=== PATIENT | female | born 1950 | race Caucasian/White ===

== ENCOUNTER 2018-05-25 07:34 | Outpatient (CLI) | payer BC ==
[~2018-05-25] VITALS: Ht 157.5 cm; Wt 48.1 kg
[2018-05-25] VITALS (8 sets, daily range): BP systolic 91–140; BP diastolic 51–77
[2018-05-25] MEDS ORDERED: LIDOCAINE 1% PF 30 ML VIAL. ONE (07:50)
[2018-05-25] MEDS ORDERED: IODIXANOL 320 MG/ML 100 ML VIAL. ONE (07:50)
[2018-05-25 08:06] LABS: HEMATOCRIT 37.5 % (36.0-47.0); HEMOGLOBIN 12.9 g/dL (12.0-15.5); RED BLOOD COUNT 3.9 x10^6/uL (3.50-5.40); RED CELL DISTRIBUTION WIDTH 12.9 % (11.5-14.5)
[2018-05-25 08:16] LABS: PROTHROMBIN TIME PATIENT 12.1 SEC (11.7-14.0)
[2018-05-25 08:17] LABS: CREATININE 1.1 mg/dL (0.6-1.0); GFR 49.7; POTASSIUM 4.4 mmol/L (3.5-5.1)
[2018-05-25] MEDS ORDERED: TRAZ-85 PO (08:37)
[2018-05-25] MEDS ORDERED: NPH,100V SQ (08:37)
[2018-05-25] MEDS ORDERED: CITA40TA5 PO (08:37)
[2018-05-25] MEDS ORDERED: GLIP10TA13 PO (08:37)
[2018-05-25] MEDS ORDERED: LISI10TA2 PO (08:37)
[2018-05-25] MEDS ORDERED: METF500T9 PO (08:37)
[2018-05-25] MEDS ORDERED: LOVA40TA2 PO (08:37)
[2018-05-25] MEDS ORDERED: GABA-585 PO (08:37)
[2018-05-25] MEDS ORDERED: fentaNYL PF VIAL 100 MCG/2 ML VIAL ONE (09:01)
[2018-05-25] MEDS ORDERED: MIDAZOLAM HCL/PF 2 MG/2 ML VIAL. ONE (09:02)
[2018-05-25] MEDS ORDERED: MIDAZOLAM HCL/PF 2 MG/2 ML VIAL. IV ONE (09:45)
[2018-05-25] MEDS ORDERED: fentaNYL PF VIAL 100 MCG/2 ML VIAL IV ONE (09:45)
[2018-05-25] MEDS ORDERED: LIDOCAINE 1% PF 30 ML VIAL. INJ ONE (09:45)
[2018-05-25] MEDS ORDERED: CONTRAST GIVEN. MC PRN (09:45)
[2018-05-25] MEDS ORDERED: IODIXANOL 320 MG/ML 100 ML VIAL. IART ONE (09:45)
--- NOTE | 2018-05-25 09:50 | CARD ---
MR#: [id number] Date of Study: 05/25/2018 Ordering Physician: ROCHELLE LIGHT, Referring Physician: ROCHELLE LIGHT Tech: Mattie Noyola RDCS APPROVED REPORT EXAM: Two-dimensional and M-mode echocardiogram with Doppler and color Doppler. Other Information Quality : Good INDICATION Hypertension/HCVD 2D DIMENSIONS RVDd2.2 (2.9-3.5cm)Left Atrium(2D)3.2 (1.6-4.0cm) IVSd0.9 (0.7-1.1cm)Aortic Root(2D)2.6 (2.0-3.7cm) LVDd3.9 (3.9-5.9cm)LVOT Diameter1.9 (1.8-2.4cm) PWd0.9 (0.7-1.1cm)LVDs2.1 (2.5-4.0cm) FS (%) 30.0 %SV53.0 ml LVEF(%)60.0 (>50%) Aortic Valve AoV Peak Domo.108.7cm/sAoV VTI22.5cm AO Peak GR.4.7mmHgLVOT VTI 23.74cm AO Mean GR.2mmHgAVA (VTI)3.00cm2 Mitral Valve MV E Gtfbcqmc48.5cm/sMV DECEL NONE237tx MV A Fxwvvwoj909.0cm/sE/A Ratio0.9 TDI Lateral E' P. V7.21cm/sMedial E' P. V5.79cm/s E/Lateral E'13.0E/Medial E'16.1 LEFT VENTRICLE The left ventricle is normal size. There is normal left ventricular wall thickness. The left ventricu lar systolic function is normal. The Ejection Fraction is 55-60%. There is normal LV segmental wall m otion. Transmitral Doppler flow pattern is Grade I-abnormal relaxation pattern. RIGHT VENTRICLE The right ventricle is normal size. The right ventricular systolic function is normal. ATRIA The left atrium size is normal. The right atrium size is normal. The interatrial septum is intact wit h no evidence for an atrial septal defect or patent foramen ovale as noted on 2-D or Doppler imaging. AORTIC VALVE The aortic valve is calcified but opens well. Doppler and Color Flow revealed no significant aortic r egurgitation. There is no significant aortic valvular stenosis. MITRAL VALVE The mitral valve is calcified but opens well. Mitral annular calcification is mild. There is no evide nce of mitral valve prolapse. There is no mitral valve stenosis. Doppler and Color-flow revealed trac e mitral regurgitation. TRICUSPID VALVE The tricuspid valve is normal in structure and function. Doppler and Color Flow revealed trace tricus pid regurgitation. There is no tricuspid valve stenosis. PULMONIC VALVE The pulmonic valve is not well visualized. Doppler and Color Flow revealed no pulmonic valvular regur gitation. There is no pulmonic valvular stenosis. GREAT VESSELS The aortic root is normal in size. The ascending aorta is normal in size. The IVC is normal in size a nd collapses >50% with inspiration. PERICARDIAL EFFUSION There is no evidence of significant pericardial effusion. Critical Notification Critical Value: No <Conclusion> The left ventricular systolic function is normal. The Ejection Fraction is 55-60%. There is normal LV segmental wall motion. Trace mitral regurgitation. Trace tricuspid regurgitation. There is no evidence of significant pericardial effusion. Signed by : Rochelle Light, Electronically Approved : 05/25/2018 09:48:54
[2018-05-25] MEDS ORDERED: IV 1/2 NORMAL SALINE 1,000 ML IV SCH (09:54)
--- NOTE | 2018-05-25 09:54 | PDOC ---
MODERATE SEDATION ASSESSMENT RISKS/ALTERNATIVES Risks/Alternatives Risks and alternatives of this type of sedation and procedure discussed with: RISK/ALTERNATIVES: Patient H & P ON CHART H & P H & P on chart and reviewed for co-morbid conditions and appropriate labs. H&P ON CHART: Yes STATUS PREG STATUS ASSESSED: N/A MEDS/ALLERGIES REVIEWED Meds/Allergies Reviewed Medications and Allergies including time and route of recently administered narcotics and sedatives. MEDS/ALLERGIES REVIEWED: Yes ASA RATING ASA RATING: II AIRWAY ASSESSMENT Airway Assessment Airway patency, oral function limitations, presence of caps, crowns, dentures, partials, and ability to extend neck assessed. AIRWAY ASSESSMENT: Yes MALLAMPATI SCORE MALLAMPATI SCORE: II PRE-SEDATION ASSESSMENT PRE-SEDATION ASSESSMENT: Yes ROCHELLE LIGHT MD May 25, 2018 09:54
[2018-05-25] MEDS ORDERED: ACETAMINOPHEN 325 MG TABLET. PO PRN (10:00)
--- NOTE | 2018-05-25 10:07 | CARD ---
MR#: [id number] Date of Study: 05/25/2018 Ordering Physician: ROCHELLE LIGHT, Referring Physician: ROCHELLE LIGHT Tech: RT Onur (R) APPROVED REPORT Patient [id number] Soaker: Cierra Noyola RT (R) Procedure(s) performed: Aortogram with bilateral lower extremity runoff Moderate sedation: 41 minutes INDICATION FOR PROCEDURE The indication(s) include : Peripheral artery disease with claudication. PROCEDURE NARRATIVE After explaining the risks, benefits and alternative options, informed consent was obtained from aldo ent. Patient was brought to the cardiac Director Of Construction and both her groins were prepped and draped in the u sual fashion. 20 mL of 2% lidocaine was infiltrated into the skin and subcutaneous tissues of the lef t groin for local anesthesia. Arterial access was obtained in the left common femoral artery and a 5 sheath was inserted. 5 [place] pigtail catheter was used to perform aortogram with bilateral lower ext remity runoff. Since patient had suspicious lesion involving the ostial segment of the right common i liac artery, a 5 [place] crossover catheter was used to cross the aortic [place] and selective angiogra phy along with pullback gradient was performed. Patient tolerated the procedure well. Hemostasis in t he left groin was achieved using mynx closure device. There were no immediate complications. FINDINGS 1. No significant stenosis involving the distal descending aorta 2. 30-40% stenosis involving the ostial segment of right common iliac artery with nonsignificant pul lback gradient of 9 mmHg. No significant stenosis involving left common iliac and bilateral external iliac arteries. 3. No significant stenosis involving bilateral common femoral arteries. The superficial femoral [place] bilaterally showed 20-30% stenosis involving the distal segment. 4. No significant stenosis involving bilateral popliteal arteries. There is good three vessel runoff below the knee bilaterally. Conclusion Nonobstructive peripheral artery disease Recommendations Vascular risk factor modification including smoking cessation and regular exercise regimen Signed by : Rochelle Light, Electronically Approved : 05/25/2018 10:06:13
== END 2018-05-25 12:35 | disposition home or self-care (01) ==
LOC: CCL 07:34
PROVIDERS: ATTEND Internal Medicine Cardiovascular Disease
DX: I70.213 Atherosclerosis of native arteries of extremities with intermittent claudication, bilateral legs (principal); E78.00 Pure hypercholesterolemia, unspecified; I10 Essential (primary) hypertension; J44.9 Chronic obstructive pulmonary disease, unspecified; E11.9 Type 2 diabetes mellitus without complications; F32.9 Major depressive disorder, single episode, unspecified; Z88.5 Allergy status to narcotic agent; Z88.8 Allergy status to other drugs, medicaments and biological substances; Z79.899 Other long term (current) drug therapy; Z79.84 Long term (current) use of oral hypoglycemic drugs
CPT/HCPCS: 36245; 36415; 75630; 80048; 85027; 85610; 93306; 99152; 99153; C1713; C1769; C1892; G0269; J1644; J2250; J3010; Q9967

== ENCOUNTER 2019-03-17 21:52 | Emergency (ER) | payer BC, OTHER ==
[~2019-03-17] VITALS: Ht 157.5 cm; Wt 68.0 kg
[~2019-03-17 21:52] MED LIST: CITA40TA5 PO; GABA-585 PO; GLIP10TA13 PO; LISI10TA2 PO; LOVA40TA2 PO; METF500T9 PO; NPH,100V SQ; TRAZ-118 PO
--- NOTE | 2019-03-17 22:09 | PHYS DOC ---
Adult General Chief Complaint Chief Complaint: OTHER COMPLAINTS HPI HPI 69-year-old female states she got a little dizzy at home and fell into a cabinet which then subsequently fell on her right arm. She opened up a laceration to her right forearm. She complains of severe pain to her right arm. She denies any chest pain shortness of breath or dyspnea on exertion. She denies any preceding palpitations. She did state that her blood sugar seemed low but she checked it and it was 240 at home. She denied any headache or lateralizing neurologic weakness.[] Review of Systems Review of Systems Constitutional: Denies fever or chills [] Eyes: Denies change in visual acuity, redness, or eye pain [] HENT: Denies nasal congestion or sore throat [] Respiratory: Denies cough or shortness of breath [] Cardiovascular: No additional information not addressed in HPI [] GI: Denies abdominal pain, nausea, vomiting, bloody stools or diarrhea [] : Denies dysuria or hematuria [] Musculoskeletal: Pain right forearm[] Integument: Wound right forearm[] Neurologic: Denies headache, focal weakness or sensory changes [] Endocrine: Denies polyuria or polydipsia [] All other systems were reviewed and found to be within normal limits, except as documented in this note. Current Medications Current Medications Current Medications Medications (Trade) Dose Ordered Sig/Candido Start Time Stop Time Status Last Admin Dose Admin Sodium Chloride 500 ml @ 500 mls/hr 1X ONCE 03/17/19 23:00 03/17/19 23:59 03/17/19 22:36 500 MLS/HR Tetanus/ Diphtheria Toxoids (Tenivac Syringe) 0.5 ml ONCE ONCE 03/17/19 23:00 03/17/19 23:01 DC Allergies Allergies Allergies Coded Allergies Type Severity Reaction Last Updated Verified NSAIDS (Non-Steroidal Anti-Inflamma Allergy Intermediate 05/25/18 Yes codeine Allergy Intermediate 05/25/18 Yes Physical Exam Physical Exam Constitutional: Well developed, well nourished, mild distress, non-toxic appearance. [] HENT: Normocephalic, atraumatic, bilateral external ears normal, oropharynx moist, no oral exudates, nose normal. [] Eyes: PERRLA, EOMI, conjunctiva normal, no discharge. [] Neck: Normal range of motion, no tenderness, supple, no stridor. [] Cardiovascular:Heart rate regular rhythm, no murmur [] Lungs & Thorax: Bilateral breath sounds clear to auscultation [] Abdomen: Bowel sounds normal, soft, no tenderness, no masses, no pulsatile masses. [] Skin: 3 cm skin tear to the right forearm. [] Back: No tenderness, no CVA tenderness. [] Extremities: Right arm is tender to palp there is no obvious deformity. [] Neurologic: Alert and oriented X 3, normal motor function, normal sensory function, no focal deficits noted. [] Psychologic: Extremely anxious. [] Current Patient Data Vital Signs Vital Signs Date Time Temp Pulse Resp B/P (MAP) Pulse Ox O2 Delivery O2 Flow Rate FiO2 03/17/19 21:57 98.0 89 16 127/67 (87) 91 Room Air 98.0 Lab Values Laboratory Tests Test 03/17/19 22:40 White Blood Count 11.3 x10^3/uL (4.0-11.0) H Red Blood Count 4.11 x10^6/uL (3.50-5.40) Hemoglobin 13.1 g/dL (12.0-15.5) Hematocrit 39.0 % (36.0-47.0) Mean Corpuscular Volume 95 fL (79-100) Mean Corpuscular Hemoglobin 32 pg (25-35) Mean Corpuscular Hemoglobin Concent 34 g/dL (31-37) Red Cell Distribution Width 13.1 % (11.5-14.5) Platelet Count 342 x10^3/uL (140-400) Neutrophils (%) (Auto) 71 % (31-73) Lymphocytes (%) (Auto) 20 % (24-48) L Monocytes (%) (Auto) 6 % (0-9) Eosinophils (%) (Auto) 2 % (0-3) Basophils (%) (Auto) 1 % (0-3) Neutrophils # (Auto) 8.0 x10^3uL (1.8-7.7) H Lymphocytes # (Auto) 2.3 x10^3/uL (1.0-4.8) Monocytes # (Auto) 0.7 x10^3/uL (0.0-1.1) Eosinophils # (Auto) 0.2 x10^3/uL (0.0-0.7) Basophils # (Auto) 0.1 x10^3/uL (0.0-0.2) Sodium Level 132 mmol/L (136-145) L Potassium Level 4.6 mmol/L (3.5-5.1) Chloride Level 95 mmol/L (98-107) L Carbon Dioxide Level 24 mmol/L (21-32) Anion Gap 13 (6-14) Blood Urea Nitrogen 21 mg/dL (7-20) H Creatinine 1.5 mg/dL (0.6-1.0) H Estimated GFR (Cockcroft-Gault) 34.6 BUN/Creatinine Ratio 14 (6-20) Glucose Level 280 mg/dL (70-99) H Calcium Level 8.9 mg/dL (8.5-10.1) Total Bilirubin 0.2 mg/dL (0.2-1.0) Aspartate Amino Transferase (AST) 20 U/L (15-37) Alanine Aminotransferase (ALT) 23 U/L (14-59) Alkaline Phosphatase 109 U/L (46-116) Total Protein 6.1 g/dL (6.4-8.2) L Albumin 3.1 g/dL (3.4-5.0) L Albumin/Globulin Ratio 1.0 (1.0-1.7) Laboratory Tests 03/17/19 22:40 Laboratory Tests 03/17/19 22:40 EKG EKG [] Interpretation Time: EKG: Normal sinus rhythm rate of [address]-T changes Radiology/Procedures Radiology/Procedures []REASON: Trauma, laceration and pain at distal forarm PROCEDURE: FOREARM RIGHT Two-view right forearm HISTORY: Pain status post laceration AP lateral views The visualized osseous structures appear normal. IMPRESSION: No acute findings. Impressions: REASON: syncope PROCEDURE: CT HEAD WO CONTRAST CT Head W/O Contrast: History: Syncope Comparison: none Axial images were obtained without contrast. The leyva and white matter appears normal and symmetrical for the patients age. There is no mass effect, extraaxial fluid collections or hydrocephalus. There is no gross bleed. There is no focal loss of leyva-white matter distinction to suggest acute ischemia, i.e. stroke. Impression: No acute findings. PQRS Compliance Statement: One or more of the following individualized dose reduction techniques were utilized for this examination: 1. Automated exposure control 2. Adjustment of the mA and/or kV according to patient size 3. Use of iterative reconstruction technique Course & Med Decision Making Course & Med Decision Making Pertinent Labs and Imaging studies reviewed. (See chart for details) [] Dragon Disclaimer Dragon Disclaimer This electronic medical record was generated, in whole or in part, using a voice recognition dictation system. Departure Departure Impression: Primary Impression: Near syncope Additional Impressions: Contusion of right forearm Skin tear of right upper extremity Disposition: HOME, SELF-CARE Condition: IMPROVED Referrals: NEVAEH BRYSON MD (PCP) Patient Instructions: Contusion, Syncope Additional Instructions: Follow with her primary care physician this week for recheck. Return to the emergency department with any new or concerning symptoms Problem Qualifiers Additional Impressions: Contusion of right forearm Encounter type: initial encounter Qualified Codes: S50.11XA - Contusion of right forearm, initial encounter ARLEEN GUERRERO DO Mar 17, 2019 22:09
--- NOTE | 2019-03-17 22:43 | RAD ---
Two-view right forearm HISTORY: Pain status post laceration AP lateral views The visualized osseous structures appear normal. IMPRESSION: No acute findings. Electronically signed by: Tc Nolan III, MD (03/17/2019 10:41 PM) [facility]
[2019-03-17 22:47] LABS: BASO # 0.1 x10^3/uL (0.0-0.2); BASO % 1 % (0-3); EOS # 0.2 x10^3/uL (0.0-0.7); EOS % 2 % (0-3); HEMOGLOBIN 13.1 g/dL (12.0-15.5); LYMPH # 2.3 x10^3/uL (1.0-4.8); LYMPH % 20 % (24-48); MEAN CORPUSCULAR HEMOGLOBIN 32 pg (25-35); MEAN CORPUSCULAR HGB CONC 34 g/dL (31-37); MEAN CORPUSCULAR VOLUME 95 fL (79-100); MONO # 0.7 x10^3/uL (0.0-1.1); MONO % 6 % (0-9); NEUT % 71 % (31-73); PLATELET COUNT 342 x10^3/uL (140-400); RED BLOOD COUNT 4.11 x10^6/uL (3.50-5.40); RED CELL DISTRIBUTION WIDTH 13.1 % (11.5-14.5); WHITE BLOOD COUNT 11.3 x10^3/uL (4.0-11.0)
--- NOTE | 2019-03-17 22:53 | RAD ---
CT Head W/O Contrast: History: Syncope Comparison: none Axial images were obtained without contrast. The leyva and white matter appears normal and symmetrical for the patients age. There is no mass effect, extraaxial fluid collections or hydrocephalus. There is no gross bleed. There is no focal loss of leyva-white matter distinction to suggest acute ischemia, i.e. stroke. Impression: No acute findings. RS Compliance Statement: One or more of the following individualized dose reduction techniques were utilized for this examination: 1. Automated exposure control 2. Adjustment of the mA and/or kV according to patient size 3. Use of iterative reconstruction technique Electronically signed by: Tc Nolan III, MD (03/17/2019 10:51 PM) [facility]
[2019-03-17 22:59] LABS: CALCIUM 8.9 mg/dL (8.5-10.1); CREATININE 1.5 mg/dL (0.6-1.0); GFR 34.6; POTASSIUM 4.6 mmol/L (3.5-5.1)
[2019-03-17] MEDS ORDERED: IV NORMAL SALINE 500ML BAG 500 ML IV ONE (23:00)
[2019-03-17] MEDS ORDERED: TETANUS AND DIPHTHERIA TOX/PF 0.5 ML DISP.SYRIN. VAX IM ONE (23:00)
[2019-03-17 23:06] LABS: ALBUMIN 3.1 g/dL (3.4-5.0); TOTAL BILIRUBIN 0.2 mg/dL (0.2-1.0); TOTAL PROTEIN 6.1 g/dL (6.4-8.2)
[2019-03-17 23:34] VITALS: BP 173/66
== END 2019-03-17 23:50 | disposition home or self-care (01) ==
LOC: ER 21:52
DX: S51.811A Laceration without foreign body of right forearm, initial encounter (principal); R55 Syncope and collapse; Z88.5 Allergy status to narcotic agent; Z88.6 Allergy status to analgesic agent; W18.39XA Other fall on same level, initial encounter; Y93.89 Activity, other specified; Y92.89 Other specified places as the place of occurrence of the external cause; Y99.8 Other external cause status
CPT/HCPCS: 29125; 36415; 70450; 73090; 80053; 84484; 85025; 90471; 90714; 96360; 99285; J7040

== ENCOUNTER 2019-04-14 21:59 | Emergency (ER) | payer OTHER ==
[~2019-04-14] VITALS: Ht 154.9 cm; Wt 68.0 kg
--- NOTE | 2019-04-14 22:40 | PHYS DOC ---
Past Medical History Past Medical History: COPD, Depression, Diabetes-Type II, High Cholesterol, Hypertension (MAYI GUERRA APRN) Past Surgical History: Cholecystectomy, Tubal ligation (MAYI GUERRA APRN) Alcohol Use: None Drug Use: None (MAYI GUERRA APRN) Adult General Chief Complaint Chief Complaint: MECHANICAL FALL HPI HPI Patient is a 69 year old Female who presents with tissues on the porch and she was stepping down a stair and missed a step and rolled her right ankle and fell her bottom hurting her lower back. She rates her pain a 10 out of 10 and states is sharp and shooting. (MAYI GUERRA APRN) Review of Systems Review of Systems Constitutional: Denies fever or chills [] Eyes: Denies change in visual acuity, redness, or eye pain [] HENT: Denies nasal congestion or sore throat [] Respiratory: Denies cough or shortness of breath [] Cardiovascular: No additional information not addressed in HPI [] GI: Denies abdominal pain, nausea, vomiting, bloody stools or diarrhea [] : Denies dysuria or hematuria [] Musculoskeletal: back pain or right ankle joint pain [] Integument: Denies rash or skin lesions [] Neurologic: Denies headache, focal weakness or sensory changes [] Endocrine: Denies polyuria or polydipsia [] All other systems were reviewed and found to be within normal limits, except as documented in this note. (MAYI GUERRA APRN) Current Medications Current Medications Current Medications Medications (Trade) Dose Ordered Sig/Candido Start Time Stop Time Status Last Admin Dose Admin Ondansetron HCl (Zofran Odt) 4 mg 1X ONCE 04/15/19 00:15 04/15/19 00:16 DC 04/15/19 00:16 4 MG Orphenadrine Citrate (Norflex) 60 mg 1X ONCE 04/14/19 23:00 04/14/19 23:01 DC 04/14/19 23:13 60 MG (USHA DAVIS MD) Allergies Allergies Allergies Coded Allergies Type Severity Reaction Last Updated Verified NSAIDS (Non-Steroidal Anti-Inflamma Allergy Intermediate 05/25/18 Yes codeine Allergy Intermediate 05/25/18 Yes (USHA DAVIS MD) Physical Exam Physical Exam Constitutional: Well developed, well nourished, no acute distress, non-toxic appearance. [] HENT: Normocephalic, atraumatic, bilateral external ears normal, oropharynx moist, no oral exudates, nose normal. [] Eyes: PERRLA, EOMI, conjunctiva normal, no discharge. [] Neck: Normal range of motion, no tenderness, supple, no stridor. [] Cardiovascular:Heart rate regular rhythm, no murmur [] Lungs & Thorax: Bilateral breath sounds clear to auscultation [] Abdomen: Bowel sounds normal, soft, no tenderness, no masses, no pulsatile masses. [] Skin: Warm, dry, no erythema, no rash. [] Back: Lumbar spine up to thoracic tenderness, no CVA tenderness. [] Extremities: Right ankle tenderness, no cyanosis, no clubbing, right ankle ROM not intact, 2+ edema. [] Neurologic: Alert and oriented X 3, normal motor function, normal sensory function, no focal deficits noted. [] Psychologic: Affect normal, judgement normal, mood normal. [] (MAYI GUERRA APRN) Current Patient Data Vital Signs Vital Signs Date Time Temp Pulse Resp B/P (MAP) Pulse Ox O2 Delivery O2 Flow Rate FiO2 04/15/19 00:45 91 20 94 04/14/19 22:05 98.2 170/77 (108) Room Air 98.2 (USHA DAVIS MD) EKG EKG [] (MAYI GUERRA APRN) Radiology/Procedures Radiology/Procedures [] (MAYI GUERRA APRN) Impressions: [facility] [address] [place] [address] IMAGING REPORT Signed PATIENT: MOISES CLAY ACCOUNT: [id number] : 1950 LOCATION: ER AGE: 69 SEX: F EXAM STATUS: REG ER ORD. PHYSICIAN: MAYI GUERRA APRN REASON: FALL, PAIN PROCEDURE: CT LUMBAR SPINE WO CONTRAST Exam: 1. CT thoracic spine without contrast 2. CT lumbar spine without contrast CLINICAL HISTORY:Fall, back pain COMPARISON: None available. TECHNIQUE: Helical CT of the thoracic spine and lumbar spine was performed without contrast and axial, coronal and sagittal reformatted images were generated. PQRS compliance statement - One or more of the following individualized dose reduction techniques were utilized for this study: 1. Automated exposure control 2. Adjustment of the mA and/or kV according to patient size 3. Use of iterative reconstruction technique FINDINGS: Thoracic and lumbar spine: There is approximately 10 percent height loss of the T11 and T12 vertebral bodies with mild cortical offset anteriorly suspicious for acute compression fractures. Thoracic and lumbar alignment is normal. No spondylolisthesis. Mild multilevel intervertebral disc height loss. Endplate osteophytes are seen. Mild dependent opacities in the lower lobes bilaterally likely scarring/atelectasis. Atherosclerotic calcifications of the aorta are seen. IMPRESSION: Approximately 10 percent height loss of the T12 and L1 vertebral bodies with cortical offset anteriorly suspicious for acute compression fractures. No definite osseous retropulsion into the central canal. Electronically signed by: Aleksandar Landis MD (04/14/2019 11:39 PM) [facility] DICTATED and SIGNED BY: ALEKSANDAR LANDIS MD DATE: 04/14/19 2339 (MAYI GUERRA APRN) Course & Med Decision Making Course & Med Decision Making Patient is a 69 year old Female who presents with tissues on the porch and she was going down a stepped when she missed a step and rolled her right ankle and fell her bottom hurting her lower back on cement. She rates her pain a 10 out of 10 and states is sharp and shooting. Denies taking any pain medications or blood thinners. Alert and oriented. Denies hitting head, LOC, nausea, vomiting, numbness or tingling. Right ankle is tender to palpation and has 2+ swelling. Patient also has tenderness going up to mid tib-fib on the right leg. There is no swelling or deformity seen to the right tib-fib. There is no tenderness to the knee. Patient limited range of motion to the right ankle due to pain and swelling. Pedal pulses strong and present. Inspecting the back patient has tenderness to lumbar spine and up to thoracic spine. There is no bruising or redness or abrasions or deformity to back seen. Patient is able to move all extremities. PERRLA. X-rays are read by Dr. Davis and there are no obvious deformities are acute findings. CT show no acute findings. Patient is sent home with muscle relaxers and to take [place] for pain. (MAYI GUERRA APRN) Course & Med Decision Making Staff Physician Addendum: I was working in the ER during the course of this patient's visit. I was available for consultation as needed, but I was not directly involved in the care of this patient. (USHA DAVIS MD) Dragon Disclaimer Dragon Disclaimer This electronic medical record was generated, in whole or in part, using a voice recognition dictation system. (MAYI GUERRA APRN) Departure Departure Impression: Primary Impression: Fall Additional Impressions: Contusion Muscle strain Ankle sprain Disposition: HOME, SELF-CARE Condition: STABLE Referrals: NEVAEH BRYSON MD (PCP) Patient Instructions: Ankle Sprain, Contusion, Muscle Strain Additional Instructions: Follow up with primary care physician. Take Tylenol and ice to help with pain. Take medications as prescribed. Scripts Hydrocodone/Apap 5-325 (NORCO 5-325 TABLET) 1 Each Tablet 1 TAB PO PRN Q6HRS PRN for PAIN, #10 TAB 0 Refills Prov: MAYI GUERRA APRN 04/15/19 Orphenadrine Citrate (ORPHENADRINE CITRATE) 100 Mg Tablet.er 1 TAB PO BID, #20 TAB 1 Refill Prov: MAYI GUERRA APRN 04/15/19 Problem Qualifiers Primary Impression: Fall Encounter type: initial encounter Qualified Codes: W19.XXXA - Unspecified fall, initial encounter Additional Impressions: Contusion Encounter type: initial encounter Contusion area: lower back Qualified Codes: S30.0XXA - Contusion of lower back and pelvis, initial encounter Ankle sprain Encounter type: initial encounter Involved ligament of ankle: unspecified ligament Laterality: right Qualified Codes: S93.401A - Sprain of unspecified ligament of right ankle, initial encounter MAYI GUERRA APRN Apr 14, 2019 22:40 USHA DAVIS MD Apr 15, 2019 05:51
[2019-04-14] MEDS ORDERED: ORPHENADRINE CITRATE 60 MG/2 ML VIAL. IM ONE (23:00)
--- NOTE | 2019-04-14 23:42 | RAD ---
Exam: 1. CT thoracic spine without contrast 2. CT lumbar spine without contrast CLINICAL HISTORY:Fall, back pain COMPARISON: None available. TECHNIQUE: Helical CT of the thoracic spine and lumbar spine was performed without contrast and axial, coronal and sagittal reformatted images were generated. PQRS compliance statement - One or more of the following individualized dose reduction techniques were utilized for this study: 1. Automated exposure control 2. Adjustment of the mA and/or kV according to patient size 3. Use of iterative reconstruction technique FINDINGS: Thoracic and lumbar spine: There is approximately 10 percent height loss of the T11 and T12 vertebral bodies with mild cortical offset anteriorly suspicious for acute compression fractures. Thoracic and lumbar alignment is normal. No spondylolisthesis. Mild multilevel intervertebral disc height loss. Endplate osteophytes are seen. Mild dependent opacities in the lower lobes bilaterally likely scarring/atelectasis. Atherosclerotic calcifications of the aorta are seen. IMPRESSION: Approximately 10 percent height loss of the T12 and L1 vertebral bodies with cortical offset anteriorly suspicious for acute compression fractures. No definite osseous retropulsion into the central canal. Electronically signed by: Aleksandar Rubio MD (04/14/2019 11:39 PM) [facility]
[2019-04-15] MEDS ORDERED: ONDANSETRON ODT 4 MG TAB.RAPDIS. PO ONE (00:15)
[2019-04-15 00:45] VITALS: BP 148/72
[2019-04-15] MEDS ORDERED: ORPH100T PO (00:53)
[2019-04-15] MEDS ORDERED: HYDR-3164 PO (01:04)
--- NOTE | 2019-04-15 04:49 | RAD ---
EXAM: 1. AP, oblique and lateral views of the right ankle 2. AP and lateral views of the right tibia/fibula DATE: 04/14/2019 10:23 PM INDICATION: Fall, pain COMPARISON: No Prior FINDINGS- IMPRESSION: No evidence of acute fracture or dislocation. Ankle mortise is congruent. Talar dome is intact. Diffuse decreased bone mineral density. Moderate soft tissue swelling overlying the lateral malleolus. Mild soft tissue swelling about the right lower leg. Electronically signed by: Aleksandar Rubio MD (04/15/2019 4:46 AM) [facility]
== END 2019-04-15 01:11 | disposition home or self-care (01) ==
LOC: ER 21:59
DX: S93.491A Sprain of other ligament of right ankle, initial encounter (principal); S39.012A Strain of muscle, fascia and tendon of lower back, initial encounter; S29.012A Strain of muscle and tendon of back wall of thorax, initial encounter; J44.9 Chronic obstructive pulmonary disease, unspecified; F32.9 Major depressive disorder, single episode, unspecified; E11.9 Type 2 diabetes mellitus without complications; E78.00 Pure hypercholesterolemia, unspecified; I10 Essential (primary) hypertension; Z90.49 Acquired absence of other specified parts of digestive tract; Z98.51 Tubal ligation status; Z88.5 Allergy status to narcotic agent; Z88.8 Allergy status to other drugs, medicaments and biological substances; W10.8XXA Fall (on) (from) other stairs and steps, initial encounter; Y93.89 Activity, other specified; Y92.89 Other specified places as the place of occurrence of the external cause; Y99.8 Other external cause status
CPT/HCPCS: 72128; 72131; 73590; 73610; 96372; 99284; J2360; Q0162

== ENCOUNTER → 2019-11-22 | Outpatient (CLI) | payer OTHER ==
[~2019-11-22] MED LIST changes: +HYDR-3164 PO; +METF500T11 PO; -METF500T9 PO; +ORPH100T PO
--- NOTE | 2019-11-22 15:51 | KCIC ---
Bone mineral density exam History: Osteopenia, diabetes, postmenopausal Comparison: None Findings: Bone mineral density examination utilizing DEXA was performed. Left hip bone mineral density of 0.678 g/cm2 corresponds with a T score -2.2, Z score -0.8. The bone mineral density of the lumbar spine was 0.918 g/cm2 which corresponds with a T-score of -1.2, Z score 0.8. By [employer] on Osteoporosis criteria, a T score of 0 to-1 SD is considered to be within normal limits. A T score of -1 to -2.5 SD is considered osteopenia. A T score less than -2.5 SD is considered osteoporosis Impression: 1. There is osteopenia of the left hip and the lumbar spine. Electronically signed by: Hubmerto Garcia MD (11/22/2019 3:47 PM) [id number]
--- NOTE | 2019-11-22 16:46 | KCIC ---
Bilateral digital screening mammograms: Reason for examination: Routine screening. Comparison is made to previous study dated 07/24/2010. Interpretation was made with the benefit of CAD. The skin and nipples show no abnormalities. No abnormal axillary lymph nodes are seen. The breast parenchyma shows scattered fibroglandular density. (Breast density: Category B.) There continues to be small nodular density in the upper outer quadrant of the right breast at the 10:00 B position which is stable. There are no new dominant masses, suspicious calcifications or architectural distortions. Impression: No evidence of malignancy. Recommend routine screening. BI-RADS Category 2: Benign. "Our facility is accredited by the [employer] [place] [employer] Mammography [employer]." This patient's information has been entered into a reminder system for the patient to be notified with the results of her examination and a target date for the next mammogram. Electronically signed by: Kim Medrano MD (11/22/2019 4:43 PM) [email or web address]
== END | disposition home or self-care (01) ==
LOC: KCIC DEXA 13:07
PROVIDERS: ATTEND Family Medicine
DX: Z12.31 Encounter for screening mammogram for malignant neoplasm of breast (principal); M85.88 Other specified disorders of bone density and structure, other site; E11.9 Type 2 diabetes mellitus without complications; Z78.0 Asymptomatic menopausal state
CPT/HCPCS: 77067; 77080